=== PATIENT | female | born 1985 | race Caucasian/White ===

== ENCOUNTER 2017-10-03 14:00 | Emergency (ER) | payer MEDICARE, OTHER ==
[2015-08-21 17:13] VITALS: BP 121/70
[~2017-10-03] VITALS: Ht 165.1 cm; Wt 127.0 kg
[2017-10-03] MEDS ORDERED: CETI10TA22 PO (14:23)
[2017-10-03] MEDS ORDERED: BENZ100C PO (14:23)
[2017-10-03] MEDS ORDERED: PROAIR HFA8.5 GM INH (14:23)
--- NOTE | 2017-10-03 14:24 | PHYS DOC ---
Past Medical History Past Medical History: No Pertinent History, Asthma Past Surgical History: Other Additional Past Surgical Histo: neck surg NOS Alcohol Use: Occasionally Drug Use: None Adult General Chief Complaint Chief Complaint: COUGH HPI HPI Patient is a 32 year old female with history of asthma who presents today with a productive cough and nasal congestion for 2 days. Patient states she had a subjective fever for 1 day ago. Patient states she has history of smoking. She states she does not have an inhaler for her asthma. PCP Dr. Alexandria Gr Review of Systems Review of Systems Constitutional: Reports subjective fever Eyes: Denies change in visual acuity, redness, or eye pain [] HENT: NASAL congestion, denies sore throat [] Respiratory: Reports a productive cough, denies shortness of breath [] Cardiovascular: No additional information not addressed in HPI [] GI: Denies abdominal pain, nausea, vomiting, bloody stools or diarrhea [] : Denies dysuria or hematuria [] Musculoskeletal: Denies back pain or joint pain [] Integument: Denies rash or skin lesions [] Neurologic: Denies headache, focal weakness or sensory changes [] All other systems were reviewed and found to be within normal limits, except as documented in this note. Allergies Allergies Allergies Coded Allergies Type Severity Reaction Last Updated Verified No Known Drug Allergies 11/05/14 No Physical Exam Physical Exam Constitutional: Well developed, well nourished, no acute distress, non-toxic appearance. [] HENT: Normocephalic, atraumatic, bilateral external ears normal, oropharynx moist, no oral exudates, nose normal. [] Eyes: PERRLA, EOMI, conjunctiva normal, no discharge. [] Neck: Normal range of motion, no tenderness, supple, no stridor. [] Cardiovascular:Heart rate regular rhythm, no murmur [] Lungs & Thorax: Bilateral breath sounds clear to auscultation [] Abdomen: Bowel sounds normal, soft, no tenderness, no masses, no pulsatile masses. [] Skin: Warm, dry, no erythema, no rash. [] Back: No tenderness, no CVA tenderness. [] Extremities: No tenderness, no cyanosis, no clubbing, ROM intact, no edema. [] Neurologic: Alert and oriented X 3, normal motor function, normal sensory function, no focal deficits noted. [] Psychologic: Affect normal, judgement normal, mood normal. [] Current Patient Data Vital Signs Vital Signs Date Time Temp Pulse Resp B/P (MAP) Pulse Ox O2 Delivery O2 Flow Rate FiO2 10/03/17 14:09 97.9 85 16 97 Room Air 97.9 EKG EKG [] Radiology/Procedures Radiology/Procedures [] Course & Med Decision Making Course & Med Decision Making Pertinent Labs and Imaging studies reviewed. (See chart for details) Patient is in the ED with symptoms consistent of an upper respiratory infection including cough and nasal congestion. She is has history of asthma. Her lungs are clear. She is in no distress. Discharged with albuterol inhaler, Tessalon Perles and Zyrtec. Recommended following up with her PCP in one week. Instructed her to consider smoking cessation. Dragon Disclaimer Dragon Disclaimer This electronic medical record was generated, in whole or in part, using a voice recognition dictation system. Departure Departure Impression: Primary Impression: Upper respiratory infection Additional Impressions: Cough Smoking addiction Disposition: HOME, SELF-CARE Condition: STABLE Referrals: ALEXANDRIA ESTES MD (PCP) follow up with your doctor in one week Patient Instructions: Cough, Adult, Akim-vs-Vyeh, Upper Respiratory Infection, Adult, Kevw-[id number] Additional Instructions: You were seen with symptoms consistent of upper respiratory infection. Take the prescribed medicines as ordered. Use the inhaler as needed. Follow-up with your doctor in 1-2 weeks. Scripts Cetirizine Hcl (ZYRTEC) 10 Mg Tablet 1 TAB PO DAILY, #30 TAB 3 Refills Prov: ENIO THUMRAN APRN 10/03/17 Benzonatate (TESSALON PERLE) 100 Mg Capsule 1 CAP PO TID, #30 CAP Prov: ENIO THURMAN APRN 10/03/17 Albuterol Sulfate (PROAIR HFA INHALER) 8.5 Gm Hfa.aer.ad 1 PUFF INH PRN Q6HRS Y for SHORTNESS OF BREATH, #1 INHALER 1 Refill Prov: ENIO THURMAN APRN 10/03/17 Problem Qualifiers Primary Impression: Upper respiratory infection URI type: unspecified URI Qualified Codes: J06.9 - Acute upper respiratory infection, unspecified ENIO THURMAN APRN Oct 03, 2017 14:24
== END 2017-10-03 14:44 | disposition home or self-care (01) ==
LOC: ER 14:00
DX: J06.9 Acute upper respiratory infection, unspecified (principal); F17.200 Nicotine dependence, unspecified, uncomplicated; J45.909 Unspecified asthma, uncomplicated
CPT/HCPCS: 99283

== ENCOUNTER → 2020-06-28 | Outpatient (CLI) | payer MEDICARE, MEDICAID ==
[2017-10-03 14:09] VITALS: BP 123/78
[~2020-06-28] MED LIST: ALBU2.5V8 INH; BENZ100C PO; CETI10TA24 PO
--- NOTE | 2020-06-28 10:39 | RAD ---
EXAM: RIGHT UPPER QUADRANT ULTRASOUND. HISTORY: Elevated liver enzymes. COMPARISON: None. FINDINGS: Sonographic evaluation of the right upper quadrant was performed. Hyperechogenicity of the hepatic parenchyma is consistent with diffuse hepatic steatosis. The liver is at least mildly enlarged spanning 19.1 cm. There are no focal lesions. The gallbladder is unremarkable without evidence of stones, wall thickening or pericholecystic fluid. There is no sonographic Aly sign. The common duct measures 4 mm. The visualized portions of the head of the pancreas reveal no abnormality. The right kidney measures 12.6 cm. Cortical thickness and echogenicity are preserved. There is no hydronephrosis. The visualized portions of the abdominal aorta and inferior vena cava are grossly patent and normal in caliber. IMPRESSION: 1. Diffuse hepatic steatosis and hepatomegaly. Electronically signed by: Lamont Avalos MD (06/28/2020 10:37 AM) [id number]
== END | disposition home or self-care (01) ==
LOC: US 11:29
PROVIDERS: ATTEND Family Medicine
DX: K76.0 Fatty (change of) liver, not elsewhere classified (principal); R74.0 Nonspecific elevation of levels of transaminase and lactic acid dehydrogenase [LDH]; R16.0 Hepatomegaly, not elsewhere classified
CPT/HCPCS: 76705

== ENCOUNTER 2020-07-28 12:25 | Emergency (ER) | payer MEDICARE, MEDICAID ==
[~2020-07-28] VITALS: Ht 165.1 cm; Wt 95.4 kg
[~2020-07-28 12:25] MED LIST changes: -CETI10TA24 PO; +CETI10TA74 PO
[2020-07-28 13:06] VITALS: BP 156/89
[2020-07-28 13:29] LABS: BASO % 1 % (0-3); EOS # 0.1 x10^3/uL (0.0-0.7); EOS % 2 % (0-3); HEMATOCRIT 41.4 % (36.0-47.0); HEMOGLOBIN 14.8 g/dL (12.0-15.5); LYMPH # 1.9 x10^3/uL (1.0-4.8); LYMPH % 25 % (24-48); MEAN CORPUSCULAR HEMOGLOBIN 34 pg (25-35); MEAN CORPUSCULAR HGB CONC 36 g/dL (31-37); MEAN CORPUSCULAR VOLUME 95 fL (79-100); MONO # 0.7 x10^3/uL (0.0-1.1); MONO % 9 % (0-9); NEUT % 65 % (31-73); PLATELET COUNT 205 x10^3/uL (140-400); RED BLOOD COUNT 4.36 x10^6/uL (3.50-5.40); RED CELL DISTRIBUTION WIDTH 12.7 % (11.5-14.5); WHITE BLOOD COUNT 7.7 x10^3/uL (4.0-11.0)
[2020-07-28 13:37] LABS: CALCIUM 9.1 mg/dL (8.5-10.1); CREATININE 0.8 mg/dL (0.6-1.0); GFR 82.6; POTASSIUM 3.8 mmol/L (3.5-5.1)
[2020-07-28 13:38] LABS: BILIRUBIN,URINE NEGATIVE (NEG); CLARITY,URINE CLEAR; COLOR,URINE YELLOW; NITRITE,URINE NEGATIVE (NEG); PROTEIN,URINE NEGATIVE (NEG-TRACE)
[2020-07-28 13:42] LABS: ALBUMIN 3.7 g/dL (3.4-5.0); TOTAL BILIRUBIN 0.6 mg/dL (0.2-1.0); TOTAL PROTEIN 7.3 g/dL (6.4-8.2)
--- NOTE | 2020-07-28 13:45 | RAD ---
AP chest. HISTORY: Lightheaded AP view was taken of the chest. Heart is normal in size. There is no pleural effusion. There are no confluent infiltrates. IMPRESSION: 1. No acute chest disease. Electronically signed by: Parvez Elizondo MD (07/28/2020 1:42 PM) [id number]
[2020-07-28 14:08] LABS: BACTERIA,URINE FEW /HPF (0-FEW); RBC,URINE RARE /HPF (0-2); SQUAMOUS EPITHELIAL CELL,UR MANY /LPF
--- NOTE | 2020-07-28 14:14 | PHYS DOC ---
Past Medical History Past Medical History: Asthma Past Surgical History: Other Additional Past Surgical Histo: neck surg NOS Smoking Status: Current Every Day Smoker Alcohol Use: Occasionally Drug Use: None General Adult EDM: Chief Complaint: DIZZY/LIGHT HEADED HPI: HPI: The history was obtained from the patient. Patient is a 35-year-old female with PMH asthma who presents with a chief complaint of intermittent lightheadedness. Patient states she is felt intermittently lightheaded over the past 2 weeks. She states it seems to be worse when she goes from a seated to standing position. She states that she spoke to her primary care physician about this and encouraged her to drink more fluids. She states previously she drank quite a bit of Pepsi but she has been transitioning more to water. She does endorse increased thirst and urinary frequency. She denies any vertiginous symptoms. Denies any acute vision or hearing changes. Denies headache. Denies neck pain. Denies any chest pain or shortness of breath. Denies any abdominal pain or vomiting. States he does not take salicylates or acetaminophen. Denies any alcohol abuse. Does note that she smokes 2 packs of cigarettes daily. Denies any family history of cardiac disease at young age. States that other than feeling thirsty and having increased urinary frequency she has no other symptoms. Patient denies any history of immobilization greater than 48 hours, recent hospitalizations, recent surgery, recent trauma, , oral contraceptive usage, hormone replacement therapy, air travel greater than 8 hours, recent infectious disease, or general deterioration of their overall condition. Review of Systems: Review of Systems: Constitutional: Lightheadedness Eyes: Denies change in visual acuity. [] HENT: Denies nasal congestion or sore throat. [] Respiratory: Denies cough or shortness of breath. [] Cardiovascular: Denies chest pain or edema. [] GI: Denies abdominal pain, nausea, vomiting, bloody stools or diarrhea. [] : Denies dysuria. [] Musculoskeletal: Denies back pain or joint pain. [] Integument: Denies rash. [] Neurologic: Denies headache, focal weakness or sensory changes. [] Endocrine: Denies polyuria or polydipsia. [] Lymphatic: Denies swollen glands. [] Psychiatric: Denies depression or anxiety. [] Heart Score: Risk Factors: Risk Factors: DM, Current or recent (<one month) smoker, HTN, HLP, family h istory of CAD, obesity. Risk Scores: Score 0 - 3: 2.5% MACE over next 6 weeks - Discharge Home Score 4 - 6: 20.3% MACE over next 6 weeks - Admit for Clinical Observation Score 7 - 10: 72.7% MACE over next 6 weeks - Early Invasive Strategies Allergies: Allergies: Allergies Coded Allergies Type Severity Reaction Last Updated Verified No Known Drug Allergies 11/05/14 No Physical Exam: PE: Constitutional: Well developed, well nourished, no acute distress, non-toxic appearance. [] HENT: Normocephalic, atraumatic, bilateral external ears normal, oropharynx moist, no oral exudates, nose normal. [] Eyes: PERRLA, EOMI, conjunctiva normal, no discharge. [] Neck: Normal range of motion, no tenderness, supple, no stridor. [] Cardiovascular:Heart rate regular rhythm, no murmur [] Lungs & Thorax: Bilateral breath sounds clear to auscultation [] Abdomen: Soft, nontender, nonacute abdomen. No involuntary guarding or rigidity noted. No acute peritonitis. Skin: Warm, dry, no erythema, no rash. [] Back: No tenderness, no CVA tenderness. [] Extremities: No tenderness, no cyanosis, no clubbing, ROM intact, no edema. [] Neurologic: Alert with intact cognitive function. No aphasia, dysarthria, or neglect. GCS 15. Pupils 3 mm briskly reactive b/l. No APD present. Cranial nerves 2-12 grossly intact; no facial asymmetry present, tongue midline, shoulder shrugging strength intact. Strength 5/5 and symmetric throughout. Light touch sensation intact throughout. Cerebellar testing appropriate without evidence of dysdiadochokinesia. DTR's 2+ in all 4 extremities. Negative pronator drift bilaterally. Gait normal. Westlake-Hallpike negative Psychologic: Affect normal, judgement normal, mood normal. [] Current Patient Data: Labs: Laboratory Tests Test 07/28/20 13:15 07/28/20 13:20 07/28/20 13:22 Urine Collection Type Unknown Urine Color Yellow Urine Clarity Clear Urine pH 6.0 (<5.0-8.0) Urine Specific [place] 1.010 (1.000-1.030) Urine Protein Negative mg/dL (NEG-TRACE) Urine Glucose (UA) Negative mg/dL (NEG) Urine Ketones (Stick) Negative mg/dL (NEG) Urine Blood Negative (NEG) Urine Nitrite Negative (NEG) Urine Bilirubin Negative (NEG) Urine Urobilinogen Dipstick 1.0 mg/dL (0.2 mg/dL) Urine Leukocyte Esterase Trace (NEG) Urine RBC Rare /HPF (0-2) Urine WBC 1-4 /HPF (0-4) Urine Squamous Epithelial Cells Many /LPF Urine Bacteria Few /HPF (0-FEW) White Blood Count 7.7 x10^3/uL (4.0-11.0) Red Blood Count 4.36 x10^6/uL (3.50-5.40) Hemoglobin 14.8 g/dL (12.0-15.5) Hematocrit 41.4 % (36.0-47.0) Mean Corpuscular Volume 95 fL (79-100) Mean Corpuscular Hemoglobin 34 pg (25-35) Mean Corpuscular Hemoglobin Concent 36 g/dL (31-37) Red Cell Distribution Width 12.7 % (11.5-14.5) Platelet Count 205 x10^3/uL (140-400) Neutrophils (%) (Auto) 65 % (31-73) Lymphocytes (%) (Auto) 25 % (24-48) Monocytes (%) (Auto) 9 % (0-9) Eosinophils (%) (Auto) 2 % (0-3) Basophils (%) (Auto) 1 % (0-3) Neutrophils # (Auto) 5.0 x10^3/uL (1.8-7.7) Lymphocytes # (Auto) 1.9 x10^3/uL (1.0-4.8) Monocytes # (Auto) 0.7 x10^3/uL (0.0-1.1) Eosinophils # (Auto) 0.1 x10^3/uL (0.0-0.7) Basophils # (Auto) 0.0 x10^3/uL (0.0-0.2) Sodium Level 139 mmol/L (136-145) Potassium Level 3.8 mmol/L (3.5-5.1) Chloride Level 103 mmol/L (98-107) Carbon Dioxide Level 28 mmol/L (21-32) Anion Gap 8 (6-14) Blood Urea Nitrogen 6 mg/dL (7-20) L Creatinine 0.8 mg/dL (0.6-1.0) Estimated GFR (Cockcroft-Gault) 82.6 BUN/Creatinine Ratio 8 (6-20) Glucose Level 111 mg/dL (70-99) H Calcium Level 9.1 mg/dL (8.5-10.1) Total Bilirubin 0.6 mg/dL (0.2-1.0) Aspartate Amino Transferase (AST) 96 U/L (15-37) H Alanine Aminotransferase (ALT) 142 U/L (14-59) H Alkaline Phosphatase 42 U/L (46-116) L Total Protein 7.3 g/dL (6.4-8.2) Albumin 3.7 g/dL (3.4-5.0) Albumin/Globulin Ratio 1.0 (1.0-1.7) POC Urine HCG, Qualitative Hcg negative (Negative) Laboratory Tests 07/28/20 13:20 Laboratory Tests 07/28/20 13:20 Vital Signs: Vital Signs Date Time Temp Pulse Resp B/P (MAP) Pulse Ox O2 Delivery O2 Flow Rate FiO2 07/28/20 13:06 98.1 73 15 156/89 (111) 98 Room Air 98.1 EKG: EKG: [] EKG consistent with normal sinus rhythm. Ventricular rate of 70 bpm. [place] normal. Intervals normal. Nonspecific T wave inversion in lead V2. No acute ischemic changes appreciated. Radiology/Procedures: Radiology/Procedures: [][facility] [address] [place], [place] [id number] IMAGING REPORT Signed PATIENT: PATRICK KING ACCOUNT: [id number] : 1985 LOCATION: ER AGE: 35 SEX: F EXAM STATUS: PRE ER ORD. PHYSICIAN: VAUGHN OWENS DO REASON: lightheaded PROCEDURE: CHEST AP ONLY AP chest. HISTORY: Lightheaded AP view was taken of the chest. Heart is normal in size. There is no pleural effusion. There are no confluent infiltrates. IMPRESSION: 1. No acute chest disease. Electronically signed by: Parvez Elizondo MD (07/28/2020 1:42 PM) [id number] DICTATED and SIGNED BY: PARVEZ ELIZONDO MD DATE: 07/28/20 1342 Course & Med Decision Making: Course & Med Decision Making Pertinent Labs and Imaging studies reviewed. (See chart for details) [] Patient is a well-appearing 35-year-old female presents with chief complaint of intermittent lightheadedness over the past 2 weeks. Initial vital signs unremarkable. EKG shows no acute ischemic changes. Exam grossly unremarkable. No neurologic deficits. No reproducible abdominal tenderness on palpation. Basic labs were obtained. Given she reports no chest pain or shortness of breath troponin was deferred. PERC negative. She does have mild transaminitis. I do suspect this is likely due to biliary sludge. I did discuss these results with the patient in great detail. She continues to deny any abdominal pain, nausea, vomiting or any symptoms with eating food. She continues to deny any drug use, alcohol use, or acetaminophen usage. I did encourage her to follow-up with her primary care physician regarding her mild transaminitis. Remainder of work-up unremarkable. She has been able to ambulate in emergency department without symptoms. Repeat vital signs unremarkable. Return precautions have been discussed and understood. Patient does feel comfortable following up with her primary care physician as instructed in the next 2 to 3 days. Stable for discharge home. Kash Disclaimer: Kash Disclaimer: This electronic medical record was generated, in whole or in part, using a voice recognition dictation system. Departure Departure Impression: Primary Impression: Lightheadedness Additional Impressions: Polydipsia Polyuria Transaminitis Disposition: 01 HOME, SELF-CARE Condition: STABLE Referrals: NAA ESTES MD (PCP) Patient Instructions: Near-Syncope Justicifation of Admission Dx: Justifications for Admission: Justification of Admission Dx: N/A VAUGHN OWENS DO Jul 28, 2020 14:14
--- NOTE | 2020-07-28 16:08 | EKG ---
[facility] [address] [place] [id number] Test Date: 2020-07-28 Test Time: 13:06:39 Pat Name: PATRICK KING Department: Room: Gender: F Behavioral Health Care Manager: : 1985 Requested By: VAUGHN OWENS Order Number: [id number] Reading MD: Measurements Intervals [place] Rate: 70 P: 31 MS: 158 QRS: 31 QRSD: 90 T: 29 QT: 380 QTc: 413 Interpretive Statements SINUS RHYTHM NORMAL ECG RI6.02 No previous ECG available for comparison
== END 2020-07-28 14:50 | disposition home or self-care (01) ==
LOC: ER 12:25
DX: R42 Dizziness and giddiness (principal); R74.0 Nonspecific elevation of levels of transaminase and lactic acid dehydrogenase [LDH]; R63.1 Polydipsia; R35.8 Other polyuria; J45.909 Unspecified asthma, uncomplicated; F17.200 Nicotine dependence, unspecified, uncomplicated; Z98.890 Other specified postprocedural states
CPT/HCPCS: 36415; 71045; 80053; 81001; 81025; 85025; 87086; 93005; 99285

== ENCOUNTER 2020-10-10 01:20 | Emergency (ER) | payer MEDICARE, MEDICAID ==
[~2020-10-10] VITALS: Ht 165.1 cm; Wt 120.0 kg
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
[2020-10-10 01:57] LABS: BASO # 0.1 x10^3/uL (0.0-0.2); BASO % 1 % (0-3); EOS # 0.2 x10^3/uL (0.0-0.7); EOS % 2 % (0-3); HEMATOCRIT 45.2 % (36.0-47.0); LYMPH # 2.9 x10^3/uL (1.0-4.8); LYMPH % 39 % (24-48); MEAN CORPUSCULAR HEMOGLOBIN 34 pg (25-35); MEAN CORPUSCULAR HGB CONC 35 g/dL (31-37); MEAN CORPUSCULAR VOLUME 96 fL (79-100); MONO # 0.7 x10^3/uL (0.0-1.1); MONO % 9 % (0-9); NEUT # 3.7 x10^3/uL (1.8-7.7); NEUT % 50 % (31-73); PLATELET COUNT 207 x10^3/uL (140-400); RED BLOOD COUNT 4.71 x10^6/uL (3.50-5.40); WHITE BLOOD COUNT 7.5 x10^3/uL (4.0-11.0)
[2020-10-10 01:57] LABS: BILIRUBIN,URINE NEGATIVE (NEG); CLARITY,URINE CLEAR; COLOR,URINE YELLOW; NITRITE,URINE NEGATIVE (NEG); PROTEIN,URINE NEGATIVE (NEG-TRACE); UROBILINOGEN,URINE 0.2 mg/dL (0.2 mg/dL)
[2020-10-10] MEDS ORDERED: LIDO:MAALOX 1:1 20 ML SINGLE DOSE. SWSW ONE (02:00)
[2020-10-10 02:02] LABS: AMPHETAMINE/METHAMPHETAMINE NEG (NEG); BARBITURATES NEG (NEG); BENZODIAZEPINES NEG (NEG); CANNABINOIDS NEG (NEG); COCAINE NEG (NEG); METHADONE NEG (NEG); OPIATES NEG (NEG); PHENCYCLIDINE NEG (NEG)
[2020-10-10 02:02] LABS: CALCIUM 9.1 mg/dL (8.5-10.1); CREATININE 0.7 mg/dL (0.6-1.0); GFR 96.4; POTASSIUM 3.8 mmol/L (3.5-5.1)
[2020-10-10 02:06] LABS: BACTERIA,URINE 0 /HPF (0-FEW); RBC,URINE 0 /HPF (0-2); WBC,URINE RARE /HPF (0-4)
[2020-10-10 02:08] LABS: ALBUMIN 3.5 g/dL (3.4-5.0); ALBUMIN/GLOBULIN RATIO 0.9 (1.0-1.7); TOTAL BILIRUBIN 0.3 mg/dL (0.2-1.0); TOTAL PROTEIN 7.3 g/dL (6.4-8.2)
[2020-10-10] MEDS ORDERED: ONDANSETRON ODT 4 MG TAB.RAPDIS. PO ONE (02:15)
--- NOTE | 2020-10-10 02:39 | RAD ---
ABDOMEN SUPINE UPRIGHT INDICATION: Reason: abd pain / Spl. Instructions: / History: . COMPARISON: None. TECHNIQUE: Supine and upright views of the abdomen were obtained. FINDINGS: Nonobstructive bowel gas pattern. No free air. Lower chest demonstrates no acute abnormality. No acute osseous abnormality. IMPRESSION: Nonobstructive bowel gas pattern. Electronically signed by: Luis Salinas MD (10/10/2020 2:36 AM) [facility]
[2020-10-10] MEDS ORDERED: IOHEXOL 300 MG/ML 100ML VIAL. IV ONE (02:45)
[2020-10-10] MEDS ORDERED: CONTRAST GIVEN. MC PRN (02:45)
[2020-10-10 02:55] LABS: ACETAMIN < 2 mcg/ml (10-30); SALIC < 2.8 mg/dL (2.8-20.0)
--- NOTE | 2020-10-10 03:01 | RAD ---
CT ABD PELV W/ IV CONTRST ONLY History: Reason: abdominal pain / Spl. Instructions: / History: Comparison: None. Technique: After administration of intravenous contrast, helical CT of the abdomen and pelvis was performed from the lung bases through the ischial tuberosities. Coronal and sagittal reconstructions were obtained. 75 mL of Isovue-370 were used. One or more of the following dose reduction techniques were utilized: Automated exposure control (AEC), Adjustment of mA and/or kV according to patient size, Use of iterative reconstruction technique such as ASiR, CT scan done according to ALARA and image gently/image wisely Abdomen Findings: The visualized lung bases are clear. Liver measures 24 cm craniocaudad. Hepatic steatosis. The gallbladder, pancreas, spleen, and bilateral adrenal glands are normal. Symmetric renal enhancement. There is no focal renal mass. There is no hydronephrosis. The visualized loops of small bowel are normal. The visualized loops of large bowel are normal. There is no evidence of bowel obstruction. Appendix is normal. There is no free fluid. There is no mesenteric or retroperitoneal adenopathy. The abdominal aorta is normal in caliber. Pelvis Findings: Urinary bladder is normal. Uterus and ovaries are present. No pelvic free fluid. There is no pelvic or inguinal adenopathy. There is no acute bony abnormality. IMPRESSION: 1. No acute findings. 2. Hepatomegaly and hepatic steatosis. Electronically signed by: Luis Salinas MD (10/10/2020 2:58 AM) [facility]
[2020-10-10 03:25] VITALS: BP 101/63
== END 2020-10-10 03:25 | disposition home or self-care (01) ==
LOC: ER 01:20
DX: R74.01 Elevation of levels of liver transaminase levels (principal); K76.0 Fatty (change of) liver, not elsewhere classified; F10.229 Alcohol dependence with intoxication, unspecified; R16.0 Hepatomegaly, not elsewhere classified; R11.2 Nausea with vomiting, unspecified; R42 Dizziness and giddiness; J45.909 Unspecified asthma, uncomplicated; F17.200 Nicotine dependence, unspecified, uncomplicated; Z98.890 Other specified postprocedural states
CPT/HCPCS: 36415; 74021; 74177; 80053; 80307; 80329; 81001; 81025; 83690; 85025; 99285; G0480; Q9967

== ENCOUNTER 2022-02-08 20:46 | Emergency (ER) | payer MEDICARE, MEDICAID ==
[~2022-02-08] VITALS: Ht 175.3 cm; Wt 124.9 kg
[2022-02-08 21:30] VITALS: BP 135/81
--- NOTE | 2022-02-08 22:09 | PHYS DOC ---
Past Medical History Past Medical History: Asthma Past Surgical History: Other Additional Past Surgical Histo: neck surg NOS Smoking Status: Current Every Day Smoker Alcohol Use: Occasionally Drug Use: None General Adult EDM: Chief Complaint: INSECT BITE HPI: HPI: Patient is a 37 year old female who presents with possible insect bite of the left hand. Bite is on the palmar MCP joint of the second finger. No other injuries. She did not actually feel a bite or see a bite. She was rubbing it and she noticed it started turning red. Denies injecting any medications to the area. No significant past medical history. Review of Systems: Review of Systems: Constitutional: Denies fever or chills. [] Eyes: Denies change in visual acuity. [] HENT: Denies nasal congestion or sore throat. [] Respiratory: Denies cough or shortness of breath. [] Cardiovascular: Denies chest pain or edema. [] GI: Denies abdominal pain, nausea, vomiting, bloody stools or diarrhea. [] : Denies dysuria. [] Musculoskeletal: Denies back pain or joint pain. [] Integument: Rash on palm of hand left Neurologic: Denies headache, focal weakness or sensory changes. [] Endocrine: Denies polyuria or polydipsia. [] Lymphatic: Denies swollen glands. [] Psychiatric: Denies depression or anxiety. [] Heart Score: C/O Chest Pain: No Risk Factors: Risk Factors: DM, Current or recent (<one month) smoker, HTN, HLP, family history of CAD, obesity. Risk Scores: Score 0 - 3: 2.5% MACE over next 6 weeks - Discharge Home Score 4 - 6: 20.3% MACE over next 6 weeks - Admit for Clinical Observation Score 7 - 10: 72.7% MACE over next 6 weeks - Early Invasive Strategies Allergies: Allergies: Allergies Coded Allergies Type Severity Reaction Last Updated Verified No Known Drug Allergies 11/05/14 No Physical Exam: PE: Constitutional: Well developed, well nourished, no acute distress, non-toxic appearance. [] HENT: Normocephalic, atraumatic, bilateral external ears normal, oropharynx moist, no oral exudates, nose normal. [] Eyes: PERRLA, EOMI, conjunctiva normal, no discharge. [] Neck: Normal range of motion, no tenderness, supple, no stridor. [] Cardiovascular:Heart rate regular rhythm, no murmur [] Lungs & Thorax: Bilateral breath sounds clear to auscultation [] Abdomen: Bowel sounds normal, soft, no tenderness, no masses, no pulsatile masses. [] Skin: Left hand shows slight area of erythema on the palmar aspect of the second MCP joint. No raised areas or induration or streaking Back: No tenderness, no CVA tenderness. [] Extremities: No tenderness, no cyanosis, no clubbing, ROM intact, no edema. [] Neurologic: Alert and oriented X 3, normal motor function, normal sensory function, no focal deficits noted. [] Psychologic: Affect normal, judgement normal, mood normal. [] Current Patient Data: Vital Signs: Vital Signs Date Time Temp Pulse Resp B/P (MAP) Pulse Ox O2 Delivery O2 Flow Rate FiO2 02/08/22 21:30 98.0 86 20 135/81 (99) 96 Room Air 98.0 EKG: EKG: [] Radiology/Procedures: Radiology/Procedures: [] Course & Med Decision Making: Course & Med Decision Making Pertinent Labs and Imaging studies reviewed. (See chart for details) My examination does not show any overt cellulitis or direct injury. May have been a small mosquito bite however he does not require any intervention at this time. Kash Disclaimer: Kash Disclaimer: This electronic medical record was generated, in whole or in part, using a voice recognition dictation system. Departure Departure Impression: Primary Impression: Insect bite Disposition: HOME / SELF CARE / HOMELESS Condition: STABLE Referrals: NAA ESTES MD (PCP) Patient Instructions: Insect Bite TORI RUBALCAVA MD Feb 08, 2022 22:09
== END 2022-02-08 23:10 | disposition home or self-care (01) ==
LOC: ER 20:46
DX: S60.562A Insect bite (nonvenomous) of left hand, initial encounter (principal); F17.200 Nicotine dependence, unspecified, uncomplicated; J45.909 Unspecified asthma, uncomplicated; W57.XXXA Bitten or stung by nonvenomous insect and other nonvenomous arthropods, initial encounter; Y93.89 Activity, other specified; Y92.89 Other specified places as the place of occurrence of the external cause; Y99.8 Other external cause status
CPT/HCPCS: 99281